=== PATIENT | male | born 1995 | race Two or more races ===

== ENCOUNTER 2023-09-26 03:27 | Emergency (ER) | payer OTHER ==
[~2023-09-26] VITALS: Ht 170.2 cm; Wt 97.5 kg
[2023-09-26] MEDS ORDERED: FAMOTIDINE/PF 20 MG/2 ML VIAL IV PUSH STA (04:44)
[2023-09-26] MEDS ORDERED: MEPERIDINE HCL/PF 25 MG/ML VIAL IM STA (04:44)
[2023-09-26] MEDS ORDERED: PROMETHAZINE HCL 50 MG/ML AMPUL IM STA (04:45)
[2023-09-26] MEDS ORDERED: RINGERS SOLUTION,LACTATED 1,000 ML IV ONE (04:45)
[2023-09-26 05:08] LABS: HEMATOCRIT 44.2 % (39.0-48.0); HEMOGLOBIN 15.1 g/dL (13-16.00); MEAN CELL VOLUME 85.8 fL (80.0-100.00); MEAN CORPUSCULAR HEMOGLOBIN 29.4 pg (27.00-32.0); MEAN CORPUSCULAR HGB CONC 34.2 g/dl (32.0-36.0); PLATELET COUNT 265 K/uL (150-450); RED BLOOD COUNT 5.16 M/uL (4.00-6.00); RED CELL DISTRIBUTION WIDTH 14.4 % (11.5-14.5)
[2023-09-26 05:24] LABS: INR 1.04; PARTIAL THROMBOPLASTIN TIME 26.9 SECONDS (22.0-34.0); PROTHROMBIN TIME 10.9 SECONDS (9.0-11.5)
[2023-09-26 05:49] LABS: PH,URINE 5.5 (5.0-8.0); URINE APPEARANCE Clear; URINE BILIRRUBIN Negative (NEGATIVE); URINE BLOOD Negative; URINE COLOR Yellow; URINE GLUCOSE Negative (NEGATIVE); URINE KETONE Negative (NEGATIVE); URINE LEUKOCYTE Negative; URINE NITRATE Negative; URINE PROTEIN Negative (NEGATIVE); URINE UROBILINOGEN 0.2 E.U./dl
[2023-09-26 05:52] LABS: URINE EPITHELIAL CELLS 2.6 uL (0.0-38.8); URINE WBC 1.8 uL (0.0-23.2)
[2023-09-26 05:58] LABS: URINE BACTERIA 2.5 uL (0.0-1933); URINE CAST 0.71 uL (0.0-1.40); URINE RBC 1.8 uL (0.0-20.8)
[2023-09-26 06:42] LABS: ALKALINE PHOSPHATASE 57 U/L (50-136); ALT/SGPT 53 U/L (12-78); AMYLASE 60 U/L (25-115); ANION GAP 9 (10.0-20.0); AST/SGOT 26 U/L (15-37); BILIRUBIN TOTAL 0.39 mg/dL (0.3-1.2); BILIRUBIN,CONJUGATED < 0.10 mg/dL (0.0-0.2); BILIRUBIN,UNCONJUGATED 0.29 mg/dL (0.0-0.6); BLOOD UREA NITROGEN 17 mg/dL (7-18); BUN CREA RATIO 20 (7.0-25.0); CALCIUM 9.4 mg/dL (8.5-10.1); CARBON DIOXIDE 29 mEq/L (21-32); CHLORIDE 106 mmol/L (98-107); CREATININE SERUM 0.83 mg/dL (0.70-1.30); GFR 109.53; GLOBULINA 3.2 G/DL (2.4-3.5); GLUCOSE FASTING 138 mg/dL (65-100); LIPASE 32 U/L (13-75); OSMOLALITY SERUM 283 MOSM/KG (275-295); POTASSIUM 3.83 mEq/L (3.5-5.1); SODIUM 140 mmol/L (136-145); TOTAL PROTEIN 7.2 gm/dL (6.4-8.2)
== END 2023-09-26 08:36 | disposition home or self-care (01) ==
LOC: ER 03:28
PROVIDERS: General Practice
DX: R10.11 Right upper quadrant pain (principal); K80.20 Calculus of gallbladder without cholecystitis without obstruction